=== PATIENT | female | born 1970 | race Caucasian/White ===

== ENCOUNTER 2018-09-07 11:31 | Emergency (ER) | payer MEDICAID ==
[~2018-09-07] VITALS: Wt 70.0 kg
[2018-09-07 11:34] VITALS: BP 117/67; PULSE 67; RESP 18
[2018-09-07] MEDS ORDERED: FAMO-96 PO (11:55)
[2018-09-07] MEDS ORDERED: FAMOTIDINE 20 MG TAB PO ONE (12:00)
--- NOTE | 2018-09-07 12:19 | ERD ---
ER Documentation Chief Complaint Chief Complaint SORE THROAT, FEELS SOMETHING STUCK IN THROAT SINCE SATURDAY HPI 48-year-old female presents with complaint of feeling like there is something stuck in her esophagus since last Saturday. Denies any chest pain but states that the feeling is uncomfortable. She states she is also started taking doxycycline a little bit before that for a [employer] infection. Denies SOB, dyspnea, lower extremity swelling or pain, pain on exertion, diaphoresis, nausea, radiating of pain, recent travel or immobilization, hemoptysis, dsypnea, history of clotting disorder, syncope, fever, or cough. ROS All systems reviewed and are negative except as per history of present illness. Medications Home Meds Active Scripts Famotidine* (Pepcid*) 20 Mg Tablet, 20 MG PO BID for 14 Days, TAB Prov:TAHIRA URENA 09/07/18 Allergies Allergies: Coded Allergies: No Known Allergy (Unverified , 09/07/18) PMhx/Soc History of Surgery: No Anesthesia Reaction: No Hx Neurological Disorder: No Hx Respiratory Disorders: No Hx Cardiac Disorders: No Hx Psychiatric Problems: No Hx Miscellaneous Medical Probl: No Hx Alcohol Use: No Hx Substance Use: No Hx Tobacco Use: No Smoking Status: Never smoker FmHx Family History: No diabetes, No coronary disease, No other Physical Exam Vitals Vital Signs Date Temp Pulse Resp B/P (MAP) Pulse Ox O2 O2 Flow FiO2 Time Delivery Rate 09/07/18 98.1 67 18 117/67 99 11:34 (84) Physical Exam Const: No acute distress Head: Atraumatic Eyes: Normal Conjunctiva ENT: Normal External Ears, Nose and Mouth. Tonsils nonedematous erythematous bilaterally with no updates. Uvula is midline. There are no peritonsillar masses noted. Neck: Full range of motion. No meningismus. Resp: Clear to auscultation bilaterally Cardio: Regular rate and rhythm, no murmurs Abd: Soft, non tender, non distended. Normal bowel sounds Skin: No petechiae or rashes Back: No midline or flank tenderness Ext: No cyanosis, or edema Neur: Awake and alert Psych: Normal Mood and Affect Results 24 hrs Current Medications Medications Dose Sig/Maile Start Time Status Last (Trade) Ordered Route PRN Stop Time Admin Dose Reason Admin Famotidine 20 mg ONCE ONCE 09/07/18 DC 09/07/18 (Pepcid) PO 12:00 12:00 09/07/18 12:01 Procedures/MDM EKG: Rate/Rhythm: Normal Sinus Rhythm QRS, ST, T-waves: No changes consistent w/ acute ischemia Impression: No evidence of ischemia or arrhythmia MDM: Patient's presentation is consistent with possible GERD. I have low suspicion for retained foreign body in esophagus, VA, George's angina, strep throat, epiglottitis, esophageal rupture, or any other emergent condition. Patient was given trial of Pepcid to see if it helps resolve the sensation in the esophagus and advised to return to ER if symptoms worsen. At this time, patient is stable for discharge and outpatient management. I have instructed the patient to follow-up with his/her primary care physician in 1-2 days. I have discussed with the patient the possibility of needing to see a specialist for further workup and imaging studies if symptoms persist. I have in structed the patient to promptly return to the ER for any new or worsening symptoms including but not limited to increased pain, fever, nausea, vomiting, weakness or LOC. The patient and/or family expressed understanding of and agreement with this plan. All questions were answered. Home care instructions were provided. [Communication with patient both during the exam and instructions for discharge were performed with using a school crossing guard supervisor . Patient gave verbal confirmation to the practitioner, through the school crossing guard supervisor, that they understood everythign that was being said to them.] DISCLAIMER: Inadvertent spelling and grammatical errors are likely due to EHR/dictation software use and do not reflect on the overall quality of patient care. Also, please note that the electronic time recorded on this note does not necessarily reflect the actual time of the patient encounter. Departure Diagnosis: Primary Impression: GERD (gastroesophageal reflux disease) Condition: Stable Patient Instructions: What Is GERD?, Lifestyle Changes for Controlling GERD, Medications for GERD, Gerd (Adult) Referrals: COMM[facility] YOU HAVE RECEIVED A MEDICAL SCREENING EXAM AND THE RESULTS INDICATE THAT YOU DO NOT HAVE A CONDITION THAT REQUIRES URGENT TREATMENT IN THE EMERGENCY DEPARTMENT. FURTHER EVALUATION AND TREATMENT OF YOUR CONDITION CAN WAIT UNTIL YOU ARE SEEN IN YOUR DOCTORS OFFICE WITHIN THE NEXT 1-2 DAYS. IT IS YOUR RESPONSIBILITY TO MAKE AN APPOINTMENT FOR FOLOW-UP CARE. IF YOU HAVE A PRIMARY DOCTOR --you should call your primary doctor and schedule an appointment IF YOU DO NOT HAVE A PRIMARY DOCTOR YOU CAN CALL OUR PHYSICIAN REFERRAL HOTLINE AT IF YOU CAN NOT AFFORD TO SEE A PHYSICIAN YOU CAN CHOSE FROM THE FOLLOWING [facility] [address] [facility] [address] [facility]. [email or web address] [address] [facility] [address] [facility] [address], [facility]. [facility]. [address] Additional Instructions: FOLLOW UP WITH YOUR PRIMARY CARE PHYSICIAN TOMORROW.Return to this facility if you are not improving as expected. TAHIRA URENA Sep 07, 2018 12:19
== END 2018-09-07 12:25 | disposition home or self-care (01) ==
LOC: FTE 11:31
DX: K21.9 Gastro-esophageal reflux disease without esophagitis (principal)
CPT/HCPCS: 93005; Z7502; Z7610

== ENCOUNTER 2018-11-12 08:17 | Inpatient (IN) | payer MEDICAID ==
[~2018-11-12] VITALS: Ht 157.5 cm; Wt 69.4 kg
[~2018-11-12 08:17] MED LIST: CIPR500T4 PO; FAMO-96 PO; METR-122 PO; PANT40TA3 PO
[2018-11-12] MEDS ORDERED: ONDANSETRON 4 MG INJ IV STA (08:51)
[2018-11-12] MEDS ORDERED: KETOROLAC 30 MG INJ IV STA (08:51)
[2018-11-12] MEDS ORDERED: SOD CHLORIDE 0.9% 500 ML IV STA (08:51)
[2018-11-12] MEDS ORDERED: PIPER-TAZO 3.375 GM IV (PMX) 100 ML IVPB ONE (10:30)
[2018-11-12] MEDS ORDERED: ACETAMINOPHEN 325 MG TAB PO PRN ×2 (11:30→15:00)
[2018-11-12] MEDS ORDERED: ONDANSETRON 4 MG INJ IV PRN ×2 (11:30→15:00)
[2018-11-12 14:00] VITALS: BP 121/64; RESP 18
[2018-11-12 14:13] VITALS: Ht 157.5 cm; Wt 69.4 kg
[2018-11-12] MEDS ORDERED: NACL 0.9% 3 ML SYG IV SCH (15:00)
[2018-11-12] MEDS ORDERED: morphine 2 MG INJ IV PRN (15:00)
[2018-11-12] MEDS: SOD CHLORIDE 0.9% 1,000 ML IV SCH (15:36)
[2018-11-12] MEDS: PIPER-TAZO 3.375 GM IV (PMX) 100 ML IVPB SCH (19:42)
[2018-11-12 19:50] VITALS: BP 118/64; PULSE 72; RESP 19
[2018-11-12] MEDS: FAMOTIDINE 20 MG INJ IV SCH (20:27)
[2018-11-13] MEDS: PIPER-TAZO 3.375 GM IV (PMX) 100 ML IVPB SCH ×3 (01:20→12:11)
[2018-11-13 01:53] VITALS: BP 105/61; PULSE 72; RESP 17
[2018-11-13] MEDS: SOD CHLORIDE 0.9% 1,000 ML IV SCH ×2 (03:08→06:28)
[2018-11-13 07:47] VITALS: BP 104/55; PULSE 74; RESP 18
[2018-11-13] MEDS: FAMOTIDINE 20 MG INJ IV SCH (09:50)
== END 2018-11-13 14:25 | disposition home or self-care (01) | DRG 446 ==
LOC: E/R 08:17 → 2NE 11:10
PROVIDERS: ADMIT Family Medicine; ATTEND Family Medicine
DX: K80.20 Calculus of gallbladder without cholecystitis without obstruction (principal); K21.9 Gastro-esophageal reflux disease without esophagitis
CPT/HCPCS: 36415; 76705; 78226; 80053; 80061; 81001; 81025; 83036; 83690; 83735; 84100; 84484; 85025; 93005; 96374; 96375; A9537; J1885; J2405; J2543; J7030; J7040